=== PATIENT | female | born 1960 | race Caucasian/White ===

== ENCOUNTER 2020-01-01 08:59 | Day surgery (SDC) | payer OTHER, SELFPAY ==
--- NOTE | 2019-12-31 16:13 | HP.PCM_ITS ---
- Problem List (1) PMB (postmenopausal bleeding) Status: Acute History and Physical Date of Admission: 01/01/20 DATE OF SERVICE: December 25, 2019 ? PROBLEM:?PMB ? DIAGNOSIS:?PMB ? PAST SURGICAL HISTORY:? PAST SURGICAL HISTORY PAST SURGICAL HISTORY Procedure Laterality Date ? ABLATION ? 2013 ? TONSILLECTOMY HX ? ? ? PAST MEDICAL HISTORY:? PAST MEDICAL HISTORY History reviewed. No pertinent past medical history. ? SUBJECTIVE:?Pt had PMB. Pelvic US at that time showed EMS 0.3 cm. Unable to complete biopsy given cervical stenosis. Pap was normal, HPV other HR types positive. She then had another episode of PMB.? ? SOCIAL HISTORY:? SOCIAL HISTORY Social History ? Tobacco Use ? Smoking status: Former Smoker ? Smokeless tobacco: Never Used Substance Use Topics ? Alcohol use: Yes ? ? Frequency: 2-4 times a month ? ? Drinks per session: 3 or 4 ? ? Binge frequency: Never ? Drug use: Never ? [employer] MANAGER HISTORY: Pelvic US: RESULT: Uterus size: 6.5 x 4.7 x 2.7 cm ?-Orientation: Anteverted ?-Myometrium: 0.7 x 0.7 x 0.4 cm hypoechoic structure in the left posterior myometrium in close proximity to the endometrial cavity. ?-Endometrial echo complex: 0.3 cm ?-Cervix: normal Right ovary: 2 x 1.9 x 1.5 cm ?Normal sonographic appearance. ??Arterial and venous flow is present throughout the ovary on color Doppler imaging with normal spectral waveforms. Left ovary: 3 x 3.6 x 1.8 cm ?Normal sonographic appearance. ??Arterial and venous flow is present throughout the left ovary on color Doppler imaging with normal spectral waveforms. Pelvis free fluid: None. ? Pap smear was normal, atrophic HPV 16 and 18 negative. HPV other HR types positive ? ? Allergies: ?Naproxen ?Itching ?Oxycodone-Acetamino* ???Other: See Comments ? Current Outpatient Medications on File Prior to Visit Medication Sig ? amLODIPine (NORVASC) 5 mg tablet Take 1 tablet by mouth once daily. ? ibuprofen (MOTRIN) 600 mg tablet ? ? cinnamon bark (CINNAMON ORAL) Take by mouth. ? glucosamine/methylsulfonylmeth (GLUCOSAMINE MSM ORAL) Take by mouth. ? Magnesium 250 mg tab Take 250 mg by mouth. ? TURMERIC ORAL Take by mouth. ? vitamin D3-folic acid 5,000 unit- 1 mg tab Take by mouth. ? rhubarb root extract (ESTROVEN CMPLT MENOPAUSE RLF ORAL) Take by mouth. ? cyanocobalamin, vitamin B-12, (VITAMIN B-12) 5,000 mcg/mL drop Dissolve under the tongue. ? vit A/vit C/bioflav/Zn/Herb25 (ECHINACEA ACZ ORAL) Take by mouth. ? aspirin/acetaminophen/caffeine (EXCEDRIN MIGRAINE ORAL) Take by mouth. No current facility-administered medications on file prior to visit.? ? OBJECTIVE: ? VITALS: BP 120/80 ? Pulse 62 ? Resp 16 ? Ht 5' 2 (1.575 m) ? Wt 188 lb (85.3 kg) ? BMI 34.39 kg/m? ? HEENT: ?Normocephalic, atraumatic, Mucus membranes moist without lesions. ? NECK: ???Soft and Supple. ?No adenopathy , thyromegaly or bruits. ? SKIN: No lesions. ? CHEST: Clear to auscultation. ?No wheezes or rales. ?Good air exchange. ? HEART: Regular rate and rhythm ?No S3 or S4. ?No gallops or rubs. ? BACK: Nontender with no CVA tenderness. ? ABDOMEN: Soft, non-tender, non-distended, no masses, no hepatosplenomegaly. ? LOWER EXTREMITIES: There was no pitting edema, no palpable cords and no skin changes. ? ? ? ASSESSMENT:?PMB ? PLAN:?Recommend hysteroscopy D&C. Discussed possible polypectomy.?The rationale for the proposed surgery was discussed in addition to risks, benefits, and alternatives. ?General pre- and post-operative care was reviewed. ?Questions were answered. ?After discussion, the patient indicated a desire to proceed with the planned surgery.? ? Bee Tripp,?DO
[2020-01-01 09:25] LABS: Hematocrit 40.4 % (37-47); Hemoglobin 13.1 g/dL (12.0-15.0); Mean Corp Hgb Conc 32.4 g/dL (32-36); Mean Corpuscular Hgb 30.6 pg (27.0-32.0); Mean Corpuscular Volume 94.4 fL (81-99); Mean Platelet Vol. 9.9 fl (6.2-12.0); Platelet Count 260 K/mm3 (150-450); RBC Distribution Width CV 12.5 % (11.6-14.6); RBC Distribution Width SD 43.5 fl (35.1-43.9); Red Blood Count 4.28 M/mm3 (4.2-5.4); White Blood Count 6.2 K/mm3 (4.4-11.0)
[2020-01-01 09:28] VITALS: BP 162/70; PULSE 61; RESP 16; TEMP 36.9; O2SAT 98; BMI 33.7
[2020-01-01] MEDS: Lactated Ringers 1,000 ML 100 ML IV (09:37)
--- NOTE | 2020-01-01 10:46 | PCM.DC.D&C ---
Discharge Diet: No Restrictions Discharge Activity: May Not Drive - for 24 hours after surgery, May Shower Return to work on:: 01/05/20 May shower in (days): 0 May resume sexual activity in: 1 week - No intercourse, tampons, hot tubs, tub baths for 1 week until the bleeding stops Weight Bearing Status: Weight bearing as tolerated Lifting Restrictions: No restrictions Call your doctor if you observe: Fever of 101 or Higher, Inability to urinate, Inability to have a bowel movement, Using more than one pad per hour, Shortness of breath, Dizziness, Fainting spells, Swelling in the ankles, Chest pain, Increased palpitations (irregular heartbeat), Calf discomfort, Uncontrolled pain Allergies/Adverse Reactions: Allergies naproxen Adverse Reaction (Verified 12/24/19 15:22) Itching oxycodone [From Percocet] Adverse Reaction (Verified 12/24/19 15:22) PT UNSURE OF REACTION bugs crawling on skin Medications to take at Discharge Amlodipine Besylate [Norvasc] 5 mg PO QHS 12/24/19 Cholecalciferol (Vitamin D3) [Vitamin D3] 1 cap PO DAILY 12/24/19 Cyanocobalamin (Vitamin B-12) [Vitamin B12] 5,000 mcg PO DAILY 12/24/19 Ibuprofen 600 mg PO PRN PRN 12/24/19 Magnesium 250 mg PO DAILY 12/24/19 Orders to be completed after discharge: Type & Screen - PAT ONLY Time Frame: 01/01/20, Facility: [facility], Location: Laboratory Primary Care Physician: Care Physician,No Primary [Primary Care Provider] - Test Results: Test results from this visit will be discussed in further detail at your follow-up appointment, if applicable. Please Follow Up With: Bee Tripp DO When: 1-2 weeks
--- NOTE | 2020-01-01 10:48 | OP.PCM_ITS ---
Problem List (1) PMB (postmenopausal bleeding) Status: Acute Report of Operation Date of Procedure: 01/01/20 Pre-Operative Diagnosis: PMB, cervical stenosis, unable to complete EMB in office given stenosis Post-Operative Diagnosis: As above Surgery/Procedure Performed:: Hysteroscopy Description of Surgical Findings:: Stenotic cervix noted. Unable to advance hysteroscope into uterus. Likely a false tract was created in the cervix finisher wallboard and plasterboard: None Type of Anesthesia:: MAC Special Medications: None Specimen's removed: None Drains: None Estimated Blood Loss (mL): < 10 cc Fluids Replaced: 400 cc Description of Procedure: The pt was taken to the operating room where anesthesia was found to be adequate. She was prepped and draped in the dorsolithotomy position using yellowfin stirrups. A weighted speculum was placed into the vagina to expose the cervix. A single-tooth tenaculum was placed on the anterior lip of the cervix. The cervix was noted to be very stenotic. The cervix was attempted to be dilated with dilators, and the cervix was not able to be dilated. The hysteroscope was used in an attempt to hydrodilate the cervix. Was unable to advance the hysteroscope into the uterus. The hysteroscope was removed. Dilators were then used again to reattempt to dilate the cervix. The hysteroscope was then again advanced and a false tract was noted. Hysteroscope was then removed. A D&C was not performed. All instruments were removed from the vagina. Bleeding was hemostatic. Instrument and sponge counts were correct. Patient tolerated the procedure well and was taken to the recovery in stable condition. Grafts/Implants Used: None - Complications None
[2020-01-01 10:55] VITALS: BP 162/70; BP 164/79; PULSE 57; RESP 16; TEMP 36.4; O2SAT 100
[2020-01-01 11:00] VITALS: BP 161/84; BP 162/70; PULSE 57; RESP 16; O2SAT 99
[2020-01-01 11:05] VITALS: BP 162/70; BP 163/88; PULSE 56; RESP 16; O2SAT 98
[2020-01-01 11:10] VITALS: BP 143/85; BP 162/70; PULSE 54; RESP 16; TEMP 36.8; O2SAT 99
[2020-01-01 11:40] VITALS: BP 162/70
== END 2020-01-01 11:51 | disposition home or self-care (01) ==
LOC: SDC 08:59 → AC 09:00
PROVIDERS: Referring Provider Obstetrics & Gynecology; Visit Provider Obstetrics & Gynecology
PROC: 0UB98ZZ Excision of Uterus, Via Natural or Artificial Opening Endoscopic (ICD-10-PCS; CPT 58558; principal; 2020-01-01 10:20)
DX: N95.0 Postmenopausal bleeding (principal); N88.2 Stricture and stenosis of cervix uteri; Z79.899 Other long term (current) drug therapy; Z87.891 Personal history of nicotine dependence
CPT/HCPCS: 00952; 58555; 85027; 86850; 86870; 86900; 86901; 86902; 86905; 87426; C9803; J7120; J2405